=== PATIENT | male | born 1955 | race Caucasian/White ===

== ENCOUNTER 2017-04-07 16:03 | Emergency (ER) | payer MEDICAID ==
[2017-04-07] MEDS ORDERED: OLANZapine 10 MG VIAL IM STA ×2 (16:35→18:23)
[2017-04-07] MEDS ORDERED: WATER FOR INJECTION,STERILE 10 ML ONE ×2 (16:45→18:29)
[2017-04-07] MEDS ORDERED: OLANZapine 10 MG VIAL IM ONE ×2 (16:46→18:29)
[2017-04-07 17:46] LABS: BASOPHILS # (AUTO) 0.1 10^3/uL (0.0-0.1); BASOPHILS % (AUTO) 0.9 %; EOSINOPHILS # (AUTO) 0.1 10^3/uL (0.0-0.7); EOSINOPHILS % (AUTO) 1.2 %; HCT - HEMATOCRIT 43.5 % (42.0-52.0); HGB - HEMOGLOBIN 15.4 g/dL (14.0-18.0); LYMPHOCYTES # (AUTO) 1.4 10^3/uL (1.5-3.5); MEAN CORPUSCULAR HEMOGLOBIN 32.8 pg (27.0-31.0); MEAN CORPUSCULAR HGB CONC 35.5 g/dL (32.0-36.0); MEAN CORPUSCULAR VOLUME 92.6 fL (80.0-94.0); MEAN PLATELET VOLUME 8.9 fL (7.4-11.4); MONOCYTES # (AUTO) 0.8 10^3/uL (0.0-1.0); NEUTROPHILS # (AUTO) 5.9 10^3/uL (1.5-6.6); NEUTROPHILS % (AUTO) 70.9 %; RED CELL DISTRIBUTION WIDTH 13.1 % (12.0-15.0); UNCORRECTED WHITE BLOOD COUNT 8.3 x10^3/uL; WHITE BLOOD COUNT 8.3 x10^3/uL (4.8-10.8)
[2017-04-07 17:58] LABS: ALBUMIN/GLOBULIN RATIO 1.8 (1.0-2.2); BILIRUBIN,TOTAL 1.5 mg/dL (0.2-1.0); BUN - BLOOD UREA NITROGEN 19 mg/dL (6-20); CALCIUM 8.9 mg/dL (8.5-10.3); CARBON DIOXIDE - CO2 24 mmol/L (21-32); CHLORIDE 107 mmol/L (101-111); CREATININE 0.9 mg/dL (0.6-1.2); GFR - MDRD 86 (>89); GLUCOSE 128 mg/dL (70-100); LIPASE 18 U/L (22-51); POTASSIUM 3.2 mmol/L (3.5-5.0); SALICYLATE < 6.0 mg/dL; SODIUM 139 mmol/L (135-145); TOTAL PROTEIN 6.6 g/dL (6.7-8.2)
[2017-04-07 18:07] LABS: ACETAMINOPHEN < 10 ug/mL (10-30)
--- NOTE | 2017-04-07 21:20 | CT Preliminary Report ---
Exam: CT Head W/O IMPRESSION: No acute or focal intracranial abnormality seen. [facility] SITE ID: [id number]
--- NOTE | 2017-04-07 21:22 | CT Report ---
EXAM: CT HEAD EXAM DATE: 04/07/2017 08:56 PM. CLINICAL HISTORY: Headaches, altered level of consciousness. Acting bizarre for the last three days. Combative earlier. COMPARISON: None. TECHNIQUE: Multiaxial CT images were obtained from the foramen magnum to the vertex. IV contrast: Non e. Reformats: Coronal. In accordance with CT protocol optimization, one or more of the following dose reduction techniques w ere utilized for this exam: automated exposure control, adjustment of mA and/or KV based on patient s ize, or use of iterative reconstructive technique. FINDINGS: Parenchyma: No intraparenchymal hemorrhage. No evidence of mass, midline shift, or CT findings of inf arction. Alcaraz-white differentiation is distinct. Extraaxial Spaces: Normal for age. No subdural or epidural collections identified. Ventricles: Normal in size and position. Sinuses: Minimal right maxillary sinus mucosal thickening and mucous retention cyst. Bones: No evidence of fracture or calvarial defect. IMPRESSION: No acute or focal intracranial abnormality seen. [facility] Referring Provider Line: [phone] SITE ID: [id number]
--- NOTE | 2017-04-08 01:01 | ED Physician Documentation ---
PD HPI MHE - Stated complaint Stated Complaint: MHE - Chief complaint Chief Complaint: MHE - History obtained from History obtained from: Patient, Friend - Additional information Additional information: Patient is reportedly visiting from [place]. Brought in by friends. Unknown past medical history. Patient is unable to give any history at this time. Per his friends he has not been sleeping at night. They state that he told him that if he gets very close to his computer the computer will talk back to him and tell him that it loves him. They state he is also been aggressive and violent. They state this is not normal behavior for him. He has been on a road trip for the past 11 days. He reportedly occasionally drinks alcohol. Does not use any drugs other than occasional marijuana. They state that he is on medications , but they do not know what they are. Review of Systems Unable to obtain: AMS, Uncooperative PD PAST MEDICAL HISTORY - Past Medical History Past Medical History: Yes Cardiovascular: Hypertension - Past Surgical History Past Surgical History: Yes Ortho: Other - Present Medications Home Medications: Ambulatory Orders Medication Instructions Recorded Confirmed Acetaminophen with Codeine 1 tab PO Q4HR PRN 04/07/17 04/07/17 [Tylenol with Codeine #3 Tablet] Hydrochlorothiazide 25 mg PO DAILY 04/07/17 04/07/17 Meloxicam 7.5 mg PO DAILY 04/07/17 04/07/17 - Allergies Allergies/Adverse Reactions: Allergies Allergy/AdvReac Type Severity Reaction Status Date / Time Unable to Assess Allergy Verified 04/07/17 16:11 - Social History Does the pt smoke?: Yes Smoking Status: Current every day smoker Does the pt drink ETOH?: Yes Substance Use and Type: Marijuana - Immunizations Immunizations are current?: Yes PD ED PE NORMAL - Vitals Vital signs reviewed: Yes - General General: Other (Alert) - HEENT HEENT: PERRL, Moist mucous membranes - Neck Neck: Supple, no meningeal sign - Cardiac Cardiac: RRR, Strong equal pulses - Respiratory Respiratory: No respiratory distress, Clear bilaterally - Abdomen Abdomen: Soft, Non tender - Derm Derm: Warm and dry, No rash - Extremities Extremities: No edema, No calf tenderness / cord - Neuro Neuro: No motor deficit, No sensory deficit - Psych Psych: Other (Patient appears intermittently agitated, appears to be responding to internal stimuli and is unable to complete a thought or sentence. Often puts his hands in response to questions.) Results - Vitals Vitals: Vital Signs - 24 hr 04/07/17 04/07/17 04/07/17 16:08 18:15 21:01 Temperature 36.5 C Heart Rate 106 H 95 81 Respiratory 14 20 20 Rate Blood Pressure 200/114 H 157/87 H 168/78 H O2 Saturation 100 100 100 04/07/17 04/07/17 04/07/17 21:55 22:49 23:47 Temperature Heart Rate 63 74 71 Respiratory 20 20 18 Rate Blood Pressure 138/68 H 135/81 H 147/61 H O2 Saturation 97 100 97 04/08/17 00:50 Temperature 36.9 C Heart Rate 74 Respiratory 14 Rate Blood Pressure 153/83 H O2 Saturation 98 Oxygen O2 Source Room air - Labs Labs: Laboratory Tests 04/07/17 04/07/17 04/07/17 17:37 17:37 17:52 WBC 8.3 RBC 4.70 Hgb 15.4 Hct 43.5 MCV 92.6 MCH 32.8 H MCHC 35.5 RDW 13.1 Plt Count 157 MPV 8.9 Neut # 5.9 Lymph # 1.4 L [place] # 0.8 Eos # 0.1 Baso # 0.1 Absolute Nucleated RBC 0.00 Nucleated RBCs 0.0 Sodium 139 Potassium 3.2 L Chloride 107 Carbon Dioxide 24 Anion Gap 8.0 BUN 19 Creatinine 0.9 Estimated GFR (MDRD) 86 L Glucose 128 H Calcium 8.9 Total Bilirubin 1.5 H AST 44 H ALT 34 Alkaline Phosphatase 79 Total Protein 6.6 L Albumin 4.2 Globulin 2.4 Albumin/Globulin Ratio 1.8 Lipase 18 L Salicylates < 6.0 Urine Opiates Screen NEGATIVE Ur Oxycodone Screen NEGATIVE Urine Methadone Screen NEGATIVE Ur Propoxyphene Screen NEGATIVE Acetaminophen < 10 L Ur Barbiturates Screen NEGATIVE Ur Tricyclics Screen NEGATIVE Ur Phencyclidine Scrn NEGATIVE Ur Amphetamine Screen NEGATIVE U Methamphetamines Scrn NEGATIVE U Benzodiazepines Scrn NEGATIVE Urine Cocaine Screen NEGATIVE U Cannabinoids Screen POSITIVE H Ethyl Alcohol < 5.0 - Rads (name of study) head CT Radiology: Prelim report reviewed, EMP read contemporaneously, See rad report ( No acute or focal intracranial abnormality seen. ) PD MEDICAL DECISION MAKING - ED course Complexity details: reviewed results, re-evaluated patient, considered differential, d/w patient, d/w family ED course: Patient is a 61-year-old male who presents to the emergency department with what appears to be psychosis NOS. He appears to be in a manic state as well, not sleeping at night. Appears to be responding to significant internal stimuli and is having difficulty forming coherent sentences. He was aggressive in the emergency department and was throwing items around the room. Therefore police were contacted came and helped to restrain the patient. He was then given Zyprexa and this did seem to help him for approximately 20 minutes as he became more coherent, then began to have rambling speech again and unable to finish thoughts. He was given another 10 mg of Zyprexa and was able to sleep. Labs and urine were obtained at that time. Head CT was also performed. No acute laboratory the abnormalities to explain his symptoms. He is currently sleeping in the emergency department we will reevaluate him in the morning. His is on a plane from [place] to come and see him. If he remains psychotic and manic, will likely need [facility] evaluation. If he is cooperative, and able to form coherent thoughts, would likely benefit from telemetry psych or social work consultation. The patient's does state that she feels that he may be manic-depressive. Patient signed out to [facility] emergency department physician This document was made in part using voice recognition software. While efforts are made to proofread this document, sound alike and grammatical errors may occur. Departure - Departure Clinical Impression: Lizbeth Psychosis Qualifiers: Psychosis type: unspecified psychosis type Qualified Code(s): F29 - Unspecified psychosis not due to a substance or known physiological condition Condition: Stable
[2017-04-08] MEDS ORDERED: IBUPROFEN 600 MG TABLET PO ONE (02:36)
[2017-04-08] MEDS ORDERED: IBUPROFEN 600 MG TABLET PO STA (02:47)
[2017-04-08] MEDS ORDERED: hydroCHLOROthiazide 25 MG TABLET PO STA (14:08)
[2017-04-08] MEDS ORDERED: MELOXICAM 7.5 MG TABLET PO STA (14:08)
[2017-04-08] MEDS ORDERED: hydroCHLOROthiazide 25 MG TABLET ONE (14:31)
[2017-04-08] MEDS ORDERED: MELOXICAM 7.5 MG TABLET PO ONE (14:31)
[2017-04-08 16:53] VITALS: BP 154/85
--- NOTE | 2017-04-26 00:11 | ED Physician Documentation ---
ED Addendum - Addendum Addendum: 04/26/17 00:07 Patient has been here for acute psychosis with behavioral agitation that needed restraints physically and then chemically. He rested overnight and has been cooperative and conversant today. Did not need further medications today. Seen by [facility] NO[facility] who felt that patient was not at risk of harm at this point and did not seem disabled. Patient promises to avoid drugs. came from [place] and says patient has had similar epiosdes in the past. She is comfortable taking him to [facility] and [facility] gave voucher to go to local one. Patient discharged in cooperative and calm condition. Diagnosis: acute psychosis, improved Disposition: discharged home with stable condition.
== END 2017-04-08 17:14 | disposition home or self-care (01) ==
LOC: ED 16:03
DX: F30.9 Manic episode, unspecified (principal); F29 Unspecified psychosis not due to a substance or known physiological condition; F17.200 Nicotine dependence, unspecified, uncomplicated; F12.90 Cannabis use, unspecified, uncomplicated; I10 Essential (primary) hypertension
CPT/HCPCS: 36415; 70450; 80053; 80306; 80307; 80320; 80329; 83690; 85025; 96372; 99284; 99285; A9270

== ENCOUNTER 2017-04-09 03:22 | Outpatient (CLI) | payer MEDICAID | END 2017-04-09 03:23 | disposition critical access hospital (66) | LOC: EMS 03:22 | PROVIDERS: ATTEND Surgery | DX: M54.2 Cervicalgia (principal) | CPT/HCPCS: A0425; A0429 ==

== ENCOUNTER 2017-04-09 03:52 | Emergency (ER) | payer MEDICAID ==
[2017-04-09] MEDS ORDERED: KETOROLAC 60 MG/2 ML VIAL ONE (04:13)
[2017-04-09 04:27] LABS: BASOPHILS % (AUTO) 0.5 %; EOSINOPHILS # (AUTO) 0.1 10^3/uL (0.0-0.7); EOSINOPHILS % (AUTO) 1.1 %; HCT - HEMATOCRIT 46.7 % (42.0-52.0); HGB - HEMOGLOBIN 16.6 g/dL (14.0-18.0); LYMPHOCYTES # (AUTO) 1.7 10^3/uL (1.5-3.5); LYMPHOCYTES % (AUTO) 17.2 %; MEAN CORPUSCULAR HEMOGLOBIN 32.7 pg (27.0-31.0); MEAN CORPUSCULAR HGB CONC 35.5 g/dL (32.0-36.0); MEAN CORPUSCULAR VOLUME 92.1 fL (80.0-94.0); MEAN PLATELET VOLUME 8.8 fL (7.4-11.4); MONOCYTES # (AUTO) 1.1 10^3/uL (0.0-1.0); MONOCYTES % (AUTO) 11.3 %; NEUTROPHILS # (AUTO) 6.9 10^3/uL (1.5-6.6); NEUTROPHILS % (AUTO) 69.9 %; NUCLEATED RED BLOOD CELLS AUTO 0.2 /100WBC; RED BLOOD COUNT 5.07 10^6/uL (4.70-6.10); RED CELL DISTRIBUTION WIDTH 13.2 % (12.0-15.0); UNCORRECTED WHITE BLOOD COUNT 9.9 x10^3/uL; WHITE BLOOD COUNT 9.9 x10^3/uL (4.8-10.8)
[2017-04-09 04:41] LABS: ACETAMINOPHEN < 10 ug/mL (10-30); ALBUMIN/GLOBULIN RATIO 1.4 (1.0-2.2); BILIRUBIN,TOTAL 1.3 mg/dL (0.2-1.0); BUN - BLOOD UREA NITROGEN 19 mg/dL (6-20); CALCIUM 9.5 mg/dL (8.5-10.3); CARBON DIOXIDE - CO2 26 mmol/L (21-32); CHLORIDE 100 mmol/L (101-111); CREATININE 1.2 mg/dL (0.6-1.2); GFR - MDRD 62 (>89); GLUCOSE 131 mg/dL (70-100); LIPASE 22 U/L (22-51); POTASSIUM 3.6 mmol/L (3.5-5.0); SALICYLATE < 6.0 mg/dL; SODIUM 138 mmol/L (135-145); TOTAL PROTEIN 7.5 g/dL (6.7-8.2)
[2017-04-09] MEDS: KETOROLAC 60 MG/2 ML VIAL IM STA (04:57)
--- NOTE | 2017-04-09 05:01 | ED Physician Documentation ---
PD HPI MHE - Stated complaint Stated Complaint: BODY ACHES/MHE - Chief complaint Chief Complaint: General - History obtained from History obtained from: Patient, Family, EMS - History of Present Illness Primary symptom: Aggressive behavior, Other Timing - onset: How many days ago (4) Similar symptoms before: Work up / diagnostics Recently seen: Emergency Dept - Additional information Additional information: Patient is a 61 year old male with no known psychiatric disorder who is presenting to the emergency department for agitation and aggressive behavior. Patient was in the emergency department yesterday where he was psychotic. He had to be subdued physically and chemically. By the morning patient was medically cleared and evaluated by dm. Patient went home with the who flew in from [place]. the stated today that he was acting bizarre and going back and forth. Patient would make delusional outrageous claims. the felt threatened by the patient. patient also complained of neck back and shoulder pain. Review of Systems Constitutional: denies: Fever, Chills Eyes: denies: Decreased vision Ears: denies: Ear pain, Drainage/discharge Nose: denies: Rhinorrhea / runny nose, Congestion Throat: denies: Dental pain / toothache, Sore throat Cardiac: denies: Chest pain / pressure Respiratory: denies: Cough GI: denies: Nausea, Vomiting Musculoskeletal: reports: Back pain, Extremity pain, Joint pain Neurologic: denies: Generalized weakness, Focal weakness, Numbness Psychiatric: reports: Delusions, Anxiety Immunocompromised: denies: Immunocompromised PD PAST MEDICAL HISTORY - Past Medical History Past Medical History: Yes Cardiovascular: Hypertension Psych: Bipolar disorder - Past Surgical History Past Surgical History: Yes Ortho: Other - Present Medications Home Medications: Ambulatory Orders Medication Instructions Recorded Confirmed Acetaminophen with Codeine 1 tab PO Q4HR PRN 04/07/17 04/09/17 [Tylenol with Codeine #3 Tablet] Hydrochlorothiazide 25 mg PO DAILY 04/07/17 04/09/17 Meloxicam 7.5 mg PO DAILY 04/07/17 04/09/17 - Allergies Allergies/Adverse Reactions: Allergies Allergy/AdvReac Type Severity Reaction Status Date / Time No Known Drug Allergies Allergy Verified 04/09/17 04:00 - Social History Does the pt smoke?: Yes Smoking Status: Current every day smoker Does the pt drink ETOH?: Yes Does the pt have substance abuse?: No - Immunizations Immunizations are current?: Yes - POLST Patient has POLST: No PD ED PE NORMAL - Vitals Vital signs reviewed: Yes - General General: Well developed/nourished - HEENT HEENT: Atraumatic, PERRL - Neck Neck: Supple, no meningeal sign, No bony TTP - Cardiac Cardiac: RRR, No murmur - Respiratory Respiratory: No respiratory distress, Clear bilaterally - Abdomen Abdomen: Soft, Non tender, Non distended - Derm Derm: Normal color, No rash - Extremities Extremities: No deformity, No edema - Neuro Neuro: No motor deficit, No sensory deficit, Normal speech PD ED PE EXPANDED - Psych Psych: Agitated, Pressured speech, Delusions Results - Vitals Vitals: Vital Signs - 24 hr 04/09/17 03:55 Temperature 36.8 C Heart Rate 92 Respiratory 18 Rate Blood Pressure 200/124 H O2 Saturation 96 Oxygen O2 Source Room air - Labs Labs: Laboratory Tests 04/09/17 04/09/17 04/09/17 04:20 04:20 04:20 WBC 9.9 RBC 5.07 Hgb 16.6 Hct 46.7 MCV 92.1 MCH 32.7 H MCHC 35.5 RDW 13.2 Plt Count 167 MPV 8.8 Neut # 6.9 H Lymph # 1.7 [place] # 1.1 H Eos # 0.1 Baso # 0.0 Absolute Nucleated RBC 0.02 Nucleated RBCs 0.2 Sodium 138 Potassium 3.6 Chloride 100 L Carbon Dioxide 26 Anion Gap 12.0 BUN 19 Creatinine 1.2 Estimated GFR (MDRD) 62 L Glucose 131 H Calcium 9.5 Total Bilirubin 1.3 H AST 38 ALT 37 Alkaline Phosphatase 84 Total Protein 7.5 Albumin 4.4 Globulin 3.1 Albumin/Globulin Ratio 1.4 Lipase 22 TSH 1.44 Salicylates < 6.0 Acetaminophen < 10 L Ethyl Alcohol < 5.0 PD MEDICAL DECISION MAKING - ED course Complexity details: reviewed old records, reviewed results, re-evaluated patient , considered differential, d/w patient, d/w family, d/w [facility] ED course: Patient was seen and examined at bedside. A long discussion was had with the who remained worried about the patient. the patient kept having varied delusions and agitation. labs were drawn and were within normal limits. patient was medically clear and [facility] was called to come evaluate the patient. Patient was signed over to Dr. Cortes pending evaluation and disposition.
[2017-04-09] MEDS ORDERED: WATER FOR INJECTION,STERILE 10 ML ONE (08:53)
[2017-04-09] MEDS ORDERED: OLANZapine 10 MG VIAL IM ONE (08:53)
[2017-04-09] MEDS: OLANZapine 10 MG VIAL IM STA (08:55)
--- NOTE | 2017-04-09 11:30 | ED Physician Documentation ---
ED Addendum - Addendum Addendum: 04/09/17 11:28 61-year-old male with acute undifferentiated psychosis comes to the emergency department in return visit for muscle aches and pains. He is floridly psychotic and this morning requires restraint and medication with Zyprexa for violent behavior. The PCR is able to obtain further history from the patient's who indicates the patient has a history of acute porphyria. We were not able to confirm this diagnosis and the patient is unable to give adequate history as he is tangential in his conversation. With limited experience with porphyria and acute psychosis possibly related transfer to an acute care facility capable of this academic undertaking was sought. [facility] was boarding and the [facility] is graciously agreed to accept this patient in transfer. He does exceed the capability of our hospital for both diagnoses. Dr. Remy is the accepting physician and the phosphoric acid supervisor is Dr. Gina Silveira. The case was reviewed with both and an unmet need for diagnosis and possible treatment of porphyria is apparent and beyond the scope of [facility]. In addition the patient has exhibited unpredictable violent behavior also beyond the scope of treatment at our facility. 04/09/17 11:33
[2017-04-09 13:11] VITALS: BP 172/112
== END 2017-04-09 13:36 | disposition short-term general hospital (02) ==
LOC: EDBD → EDUNIT# → ED 03:52
DX: F23 Brief psychotic disorder (principal); I10 Essential (primary) hypertension; F17.200 Nicotine dependence, unspecified, uncomplicated
CPT/HCPCS: 36415; 80053; 80307; 80320; 80329; 83690; 84443; 85025; 96372; 99284; 99285

== ENCOUNTER 2017-04-09 13:24 | Outpatient (CLI) | payer MEDICAID | END 2017-04-09 13:25 | disposition short-term general hospital (02) | LOC: EMS 13:24 | PROVIDERS: ATTEND Surgery | DX: F23 Brief psychotic disorder (principal) | CPT/HCPCS: A0170; A0425; A0428 ==